=== PATIENT | female | born 1990 | race Caucasian/White ===

== ENCOUNTER 2018-03-13 19:33 | Inpatient (IN) | payer MEDICAID ==
[~2018-03-13] VITALS: Ht 182.9 cm; Wt 90.0 kg
[2018-03-13] MEDS ORDERED: D5%-LACTATED RINGERS 1,000 ML IV SCH (19:51)
[2018-03-13] MEDS ORDERED: OXYTOCIN 30U/ 0.9% NaCL 500ML 500 ML IV ONE (19:51)
[2018-03-13] MEDS ORDERED: ONDANSETRON 2MG/ML, 2ML IVPush PRN (20:00)
[2018-03-13] MEDS ORDERED: FENTANYL PF 100 MCG/2ML IV PRN (20:00)
[2018-03-13] MEDS ORDERED: FENTANYL PF 100 MCG/2ML IVPush PRN (20:00)
[2018-03-13] MEDS ORDERED: CALCIUM CARBONATE 500 MG TAB.CHEW PO PRN (20:00)
[2018-03-13] MEDS ORDERED: PLEASE ENTER HEIGHT AND WEIGHT MC SCH (20:00)
[2018-03-13] MEDS ORDERED: METOCLOPRAMIDE 5 MG/ML, 2ML IVPush PRN (20:00)
[2018-03-13] MEDS ORDERED: OXYTOCIN 30U/ 0.9% NaCL 500ML 500 ML ONE ×2 (20:04→21:37)
[2018-03-13] MEDS ORDERED: NEWBORN KIT ONE (20:04)
[2018-03-13 20:09] VITALS: BP 131/66
[2018-03-13] MEDS: LACTATED RINGERS 1,000 ML IV SCH ×3 (20:25→23:28)
[2018-03-13 20:28] LABS: BASOPHILS # (AUTO) 0.02 x10^3/uL (0-0.1); BASOPHILS % (AUTO) 0 % (0-1); EOSINOPHILS # (AUTO) 0.04 x10^3/uL (0-0.4); EOSINOPHILS % (AUTO) 0 % (1-7); LYMPHOCYTES % (AUTO) 16 % (22-44); MD NO; MEAN CORPUSCULAR HEMOGLOBIN 30.6 pg (27.0-34.8); MEAN CORPUSCULAR HGB CONC 34.4 g/dL (32.4-35.8); MEAN PLATELET VOLUME 11.5 fL (7.4-10.4); MONOCYTES # (AUTO) 0.85 x10^3/uL (0.2-0.8); MONOCYTES % (AUTO) 5 % (2-9); NEUTROPHILS # (AUTO) 12.38 x10^3/uL (1.8-6.8); NEUTROPHILS % (AUTO) 78 % (42-75); PLATELET COUNT 155 x10^3/uL (130-400); RED BLOOD COUNT 4.79 x10^6/uL (3.82-5.3); RED CELL DISTRIBUTION WIDTH 13.1 % (9.6-15.2)
[2018-03-13] MEDS ORDERED: FENTANYL/BUPIV./NS/PF 250 ML EPIDCONT ONE (20:38)
[2018-03-13] MEDS ORDERED: LIDOCAINE/PF 1.5%-EPI 1:200K, 30ML ONE (20:40)
[2018-03-13] MEDS ORDERED: EPHEDRINE 50 MG/ML, 1ML ONE ×2 (20:40→21:19)
[2018-03-13] MEDS ORDERED: BUPIVACAINE 0.25% ONE (20:40)
[2018-03-13 20:57] LABS: MICROSCOPIC NOT IND
[2018-03-13] MEDS ORDERED: LIDOCAINE-MPF 1%, 5ML ONE (21:37)
[2018-03-13] MEDS ORDERED: MISOPROSTOL 200 MCG TABLET ONE (21:37)
[2018-03-13] MEDS ORDERED: RHOGAM FROM BLOOD BANK 1 NOTE EA IM/IV ONE (22:30)
[2018-03-13] MEDS ORDERED: IBUPROFEN 600 MG TABLET PO PRN (22:30)
[2018-03-13] MEDS ORDERED: ONDANSETRON 2MG/ML, 2ML IV PRN (22:30)
[2018-03-13] MEDS ORDERED: MISOPROSTOL 200 MCG TABLET PR PRN (22:30)
[2018-03-13] MEDS ORDERED: METHYLERGONOVINE 0.2 MG/ML IM PRN (22:30)
[2018-03-13] MEDS ORDERED: DOCUSATE 100 MG CAPSULE PO PRN (22:30)
[2018-03-13] MEDS ORDERED: HYDROcodone/APAP 5/325 TABLET PO PRN ×2 (22:30)
[2018-03-13] MEDS: OXYTOCIN 30U/ 0.9% NaCL 500ML 500 ML IV SCH (23:28)
[2018-03-14 00:09] VITALS: BP 125/75
[2018-03-14 01:15] VITALS: BP 112/75
[2018-03-14 03:30] VITALS: BP 110/72
[2018-03-14 06:23] LABS: BASOPHILS # (AUTO) 0.03 x10^3/uL (0-0.1); BASOPHILS % (AUTO) 0 % (0-1); EOSINOPHILS # (AUTO) 0.01 x10^3/uL (0-0.4); EOSINOPHILS % (AUTO) 0 % (1-7); LYMPHOCYTES # (AUTO) 2.11 x10^3/uL (1-3.4); LYMPHOCYTES % (AUTO) 17 % (22-44); MD NO; MEAN CORPUSCULAR HEMOGLOBIN 30.6 pg (27.0-34.8); MEAN CORPUSCULAR HGB CONC 34.1 g/dL (32.4-35.8); MEAN CORPUSCULAR VOLUME 89.6 fL (80-100); MEAN PLATELET VOLUME 10.9 fL (7.4-10.4); MONOCYTES # (AUTO) 0.67 x10^3/uL (0.2-0.8); MONOCYTES % (AUTO) 5 % (2-9); NEUTROPHILS # (AUTO) 9.89 x10^3/uL (1.8-6.8); NEUTROPHILS % (AUTO) 78 % (42-75); PLATELET COUNT 125 x10^3/uL (130-400); RED BLOOD COUNT 4.36 x10^6/uL (3.82-5.3); RED CELL DISTRIBUTION WIDTH 13.1 % (9.6-15.2)
[2018-03-14 07:35] VITALS: BP 109/65
[2018-03-14] MEDS: OXYTOCIN 30U/ 0.9% NaCL 500ML 500 ML IV SCH (08:27)
[2018-03-14] MEDS ORDERED: PRENATAL VIT/IRON/FA 1 EACH TABLET PO SCH (09:00)
[2018-03-14 12:00] VITALS: BP 106/69
[2018-03-14 17:00] VITALS: BP 106/69
== END 2018-03-14 20:31 | disposition home or self-care (01) | DRG 775 ==
LOC: LDOP 19:33 → LDIP 19:51 → 2NW 03-14
PROVIDERS: ADMIT Obstetrics & Gynecology Maternal & Fetal Medicine; ATTEND Obstetrics & Gynecology Maternal & Fetal Medicine
PROC: 10E0XZZ Delivery of Products of Conception, External Approach (ICD-10-PCS; principal; 2018-03-13)
PROC: 3E0R3BZ Introduction of Anesthetic Agent into Spinal Canal, Percutaneous Approach (ICD-10-PCS; 2018-03-13)
PROC: 00HU33Z Insertion of Infusion Device into Spinal Canal, Percutaneous Approach (ICD-10-PCS; 2018-03-13)
DX: O69.81X0 Labor and delivery complicated by cord around neck, without compression, not applicable or unspecified (principal); Z37.0 Single live birth; Z3A.41 41 weeks gestation of pregnancy
CPT/HCPCS: 36415; 81003; 85025; 86850; 86900; J3490; J2590; J3010; J7120